=== PATIENT | male | born 1990 | race Caucasian/White ===

== ENCOUNTER 2019-03-11 00:59 | Emergency (ER) | payer MEDICAID ==
[~2019-03-11] VITALS: Ht 185.4 cm; Wt 81.6 kg
[2019-03-11 01:05] VITALS: BP 137/81
--- NOTE | 2019-03-11 01:05 | NUR ---
29 YO MALE BIB SELF FOR C/O WHITE MILKY YELLOW STOOLS X30 DAYS. PT DENIES APPETITE, WEIGHT LOSS. PT DENIES FEVER CHILLS. DENIES N/V/D. ACTIVE BOWEL SOUNDS. LAST BM 03/10/19 CHRISRKAYLA LOCKED IN LOWEST POSITION. CALL LIGHT WITHIN REACH. WILL UPDATE ERMD. HX: DENIES AX: DENIES
--- NOTE | 2019-03-11 01:07 | NUR ---
PT TAKEN TO BED 4
[2019-03-11 01:20] LABS: BASOPHILS % (AUTO) 0.4 % (0.0-2.0); EOSINOPHILS # (AUTO) 0.1 K/uL (0-0.4); EOSINOPHILS % (AUTO) 0.6 % (0.0-4.0); HEMATOCRIT 38.5 % (36-52); HEMOGLOBIN 13.2 g/dL (12.0-18.0); LYMPHOCYTES # (AUTO) 1.8 K/uL (2.0-11.5); LYMPHOCYTES % (AUTO) 20.8 % (20.5-51.1); MEAN CORPUSCULAR HEMOGLOBIN 29 pg (27-31); MEAN CORPUSCULAR HGB CONC 34 g/dL (33-37); MEAN CORPUSCULAR VOLUME 85.8 fL (80-94); MONOCYTES # (AUTO) 0.8 K/uL (0.8-1.0); MONOCYTES % (AUTO) 8.9 % (1.7-9.3); NEUTROPHILS # (AUTO) 5.8 K/uL (1.8-7.7); NEUTROPHILS % (AUTO) 69.3 % (42.2-75.2); PLATELET COUNT (AUTO) 279 K/uL (140-450); RED BLOOD CELL COUNT(AUTO) 4.49 MIL/uL (4.20-6.10); RED CELL DISTRIBUTION WIDTH 13.2 % (11.6-13.7); WHITE BLOOD COUNT (AUTO) 8.4 K/uL (4.8-10.8)
--- NOTE | 2019-03-11 01:25 | NUR ---
Dr. Hinkle examining patient.
[2019-03-11 01:29] LABS: ANION GAP 9.3 (8-16); CARBON DIOXIDE 32.8 mmol/L (21-32); CREATININE 0.8 mg/dL (0.7-1.3); POTASSIUM 3.1 mmol/L (3.5-5.1)
[2019-03-11 01:33] LABS: ALBUMIN 3.8 g/dL (3.4-5.0); TOTAL BILIRUBIN 0.2 mg/dL (0.0-1.0)
[2019-03-11] MEDS ORDERED: POTASSIUM CHLORIDE 10 MEQ TABER PO ONE (01:40)
[2019-03-11 02:13] VITALS: BP 137/81
--- NOTE | 2019-03-11 02:13 | NUR ---
Patient discharged with v/s stable. Written and verbal after care instructions given and explained. Patient verbalized understanding. Ambulatory with steady gait. All questions addressed prior to discharge. Advised to follow up with PMD.
== END 2019-03-11 02:13 | disposition home or self-care (01) ==
LOC: MED 00:59
DX: F15.10 Other stimulant abuse, uncomplicated (principal); F11.10 Opioid abuse, uncomplicated; E87.6 Hypokalemia
CPT/HCPCS: 36415; 80053; 85025; 99283

== ENCOUNTER 2021-02-20 11:18 | Emergency (ER) | payer MEDICAID ==
[~2021-02-20] VITALS: Ht 185.4 cm; Wt 100.7 kg
[2021-02-20 11:20] VITALS: BP 150/81
--- NOTE | 2021-02-20 11:28 | NUR ---
PT TAKEN TO BED 6.
--- NOTE | 2021-02-20 11:45 | NUR ---
31 Y/O M BIB SPOUSE FROM HOME, PT STATES HE FORMED A BLISTER ON L HAND 1ST DIGIT 1 WEEK AGO AND CUT IT OPEN TO DRAIN THE PUS AT HOME, PT WAS GIVEN ANTIBIOTICS FOR CELLULITIS AT HOSPITAL. PT STATES HE FEELS HIS FINGER IS GETTING WORSE. PMH: HEP C NKA MED: BACTRIM
[2021-02-20] MEDS ORDERED: CEPH-588 PO (12:02)
[2021-02-20] MEDS ORDERED: BACI1PAC6 TP (12:02)
--- NOTE | 2021-02-20 12:10 | NUR ---
BAILEY Navarrete at the bedside speaking to patient/family.
[2021-02-20 12:20] VITALS: BP 150/81
--- NOTE | 2021-02-20 12:20 | NUR ---
Patient discharged with v/s stable. Written and verbal after care instructions given and explained. Patient alert, oriented and verbalized understanding of instructions. Ambulatory with steady gait. All questions addressed prior to discharge. ID band removed. Patient advised to follow up with PMD. Rx of bacitracin zinc, cephalexin given. Patient educated on indication of medication including possible reaction and side effects. Opportunity to ask questions provided and answered.
== END 2021-02-20 12:20 | disposition home or self-care (01) ==
LOC: MED 11:18
DX: L03.012 Cellulitis of left finger (principal); Z79.899 Other long term (current) drug therapy; Z86.19 Personal history of other infectious and parasitic diseases
CPT/HCPCS: 99283

== ENCOUNTER 2022-03-30 07:32 | Emergency (ER) | payer MEDICAID ==
[~2022-03-30] VITALS: Ht 185.4 cm; Wt 102.1 kg
[~2022-03-30 07:32] MED LIST: BACI1PAC6 TP; CEPH-588 PO
[2022-03-30 07:54] VITALS: BP 141/76
[2022-03-30] MEDS ORDERED: TETRACAINE HCL/PF 0.5% OPTH 4 ML BTL OP ONE (08:25)
[2022-03-30] MEDS ORDERED: FLUORESCEIN OPTH STRIP 1 MG OP ONE (08:25)
[2022-03-30] MEDS ORDERED: TOMOMETER 1 DEV DEV MC ONE (09:29)
[2022-03-30] MEDS ORDERED: CILOS LEFT EYE (09:58)
[2022-03-30] MEDS ORDERED: ERYT5OIN51 LEFT EYE (09:58)
[2022-03-30 10:11] VITALS: BP 141/76
== END 2022-03-30 10:11 | disposition home or self-care (01) ==
LOC: MED 07:32
DX: S05.02XA Injury of conjunctiva and corneal abrasion without foreign body, left eye, initial encounter (principal); R03.0 Elevated blood-pressure reading, without diagnosis of hypertension; F17.210 Nicotine dependence, cigarettes, uncomplicated; Z71.6 Tobacco abuse counseling; Z79.2 Long term (current) use of antibiotics; X58.XXXA Exposure to other specified factors, initial encounter; Y92.89 Other specified places as the place of occurrence of the external cause; Y93.89 Activity, other specified; Y99.8 Other external cause status
CPT/HCPCS: 90471; 90715; 99283

== ENCOUNTER 2024-03-23 00:45 | Emergency (ER) | payer SELFPAY ==
[~2024-03-23] VITALS: Ht 185.4 cm; Wt 108.0 kg
[~2024-03-23 00:45] MED LIST changes: +BACI-418 TP; -BACI1PAC6 TP; +CILOS LEFT EYE; +ERYT5OIN51 LEFT EYE
[2024-03-23 01:09] VITALS: BP 137/76; PULSE 82; RESP 18; TEMP 98.2; O2SAT 98
[2024-03-23] MEDS: HYDROcodone/APAP 5/325 MG 1 TAB TAB PO ONE (02:57)
[2024-03-23 02:58] VITALS: BP 132/76; PULSE 80; RESP 17; TEMP 98; O2SAT 98
[2024-03-23] MEDS ORDERED: ACET-8905 PO (02:59)
== END 2024-03-23 03:14 | disposition home or self-care (01) ==
LOC: MED 00:45
DX: S62.304A Unspecified fracture of fourth metacarpal bone, right hand, initial encounter for closed fracture (principal); Z79.2 Long term (current) use of antibiotics; Z79.899 Other long term (current) drug therapy; W23.0XXA Caught, crushed, jammed, or pinched between moving objects, initial encounter; Y93.89 Activity, other specified; Y92.89 Other specified places as the place of occurrence of the external cause; Y99.8 Other external cause status
CPT/HCPCS: 73120; 99283

== ENCOUNTER 2024-03-29 23:28 | Emergency (ER) | payer SELFPAY ==
[~2024-03-29] VITALS: Ht 185.4 cm; Wt 103.9 kg
[~2024-03-29 23:28] MED LIST changes: +ACET-8905 PO
[2024-03-29 23:35] VITALS: BP 122/84; PULSE 92; RESP 16; TEMP 98; O2SAT 98
--- NOTE | 2024-03-29 23:42 | NUR ---
ambulated to bed 10 after triage
--- NOTE | 2024-03-30 00:10 | NUR ---
T.SEEN AND EXAMINED BY LYDIA WITH ORDERS AND CARRIED OUT
--- NOTE | 2024-03-30 01:39 | NUR ---
ulnar gutter splint applied. cyndy wrap x 2. + cms after application.
[2024-03-30 01:45] VITALS: BP 122/84; PULSE 92; RESP 16; TEMP 98; O2SAT 98
== END 2024-03-30 01:45 | disposition home or self-care (01) ==
LOC: MED 23:28
DX: S62.324A Displaced fracture of shaft of fourth metacarpal bone, right hand, initial encounter for closed fracture (principal); S62.326A Displaced fracture of shaft of fifth metacarpal bone, right hand, initial encounter for closed fracture; Z79.2 Long term (current) use of antibiotics; Z79.899 Other long term (current) drug therapy; X58.XXXA Exposure to other specified factors, initial encounter; Y93.89 Activity, other specified; Y92.89 Other specified places as the place of occurrence of the external cause; Y99.8 Other external cause status
CPT/HCPCS: 29125; 73110; 99283; Q0092